=== PATIENT | male | born 1990 | race Caucasian/White ===

== ENCOUNTER 2024-07-02 18:57 | Emergency (ER) | payer MEDICAID, SELFPAY ==
[2024-07-02 19:05] VITALS: BP 115/72; PULSE 103; RESP 16; TEMP 37.4; O2SAT 97
--- NOTE | 2024-07-02 19:32 | XRR_ITS ---
PROCEDURE INFORMATION: Exam: XR Right Hand Exam date and time: 07/02/2024 7:47 PM Age: 33 years old Clinical indication: Injury or trauma; Other: Punched solid object; Blunt trauma (contusions or hematomas); Injury details: C/O pain and swelling to the right hand. 1in lac to the right hand on Friday after he punched a dumpster. PT states that he then noticed some infection looking spots around the site. Prior surgery; Surgery date: 6+ months; Surgery type: Right distal ulna 10 years ago; Additional info: Injury, punched dumpster TECHNIQUE: Imaging protocol: Radiologic exam of the right hand. Views: 3 or more views. COMPARISON: No relevant prior studies available. FINDINGS: Bones/joints: Compression plate with multiple cortical screws spanning the distal right ulna. No evidence of hardware failure or loosening. No acute fracture. Soft tissues: Soft tissue swelling along dorsal aspect of the hand. XR/XR hand RT min 3V* [id number] IMPRESSION: 1. Compression plate with multiple cortical screws spanning the distal right ulna. No evidence of hardware failure or loosening. 2. No acute fracture. 3. Soft tissue swelling along dorsal aspect of the hand.
[2024-07-02 19:34] VITALS: BP 121/74; PULSE 95; RESP 18; O2SAT 96
--- NOTE | 2024-07-02 19:34 | W.ED.WOUNDLC ---
HPI - Wound/Laceration General: Chief Complaint: Wound/Laceration Stated Complaint: right hand lac Time Seen by Provider: 07/02/24 19:25 Source: patient Mode of arrival: ambulatory Limitations: no limitations History of Present Illness: 33yo male presents with family for evaluation of right hand pain and swelling. Patient reports he punched a dumpster 5 days ago which caused a laceration. Patient states he had swelling that he was concerned was related to infection, so he punctured it with a needle a few days ago. States he did get a lot of pus out of the wound. States the swelling did return, so he poked it again with a needle, then removed the scab with his pocket knife. Patient reports he is right-hand dominant. Unsure when last tetanus. He denies fever, chills, body aches, any other concerns at this time. Associated symptoms: Denies chills or fever(s) Related Data Previous Rx's ?Medication ?Instructions ?Recorded cephalexin 500 mg capsule 500 mg PO QID 7 days #28 caps 07/02/24 sulfamethoxazole 800 1 tab PO BID 7 days #14 tabs 07/02/24 mg-trimethoprim 160 mg tablet (Bactrim DS) Allergies Allergy/AdvReac Type Severity Reaction Status Date / Time No Known Allergies Allergy Verified 07/02/24 19:10 Review of Systems Const: Denies: fever(s), chills or body aches Card: Denies: chest pain Resp: Denies: dyspnea Musc: Reports: extremity pain (right hand) and extremity swelling (right hand) [facility] PFSH: Medical History (Updated 07/02/24 @ 20:12 by MONICA Rahman) Major depressive disorder, recurrent severe without psychotic features Intermittent explosive disorder Physical Exam Const: COMMON NORMALS: no acute distress, average body habitus, patient oriented x3, healthy appearing and alert GENERAL APPEARANCE: cooperative ORIENTATION/CONSCIOUSNESS: Yes awake OTHER: Patient is ambulatory to the exam room unassisted. He is sitting upright on the stretcher in no acute distress. He is able to give history with no difficulty. He is interactive with exam appropriately. Family is at bedside HENMT: COMMON NORMALS: normocephalic HEAD & SCALP: normocephalic Chest: CHEST: Yes Symmetrical chest wall rise Resp: COMMON NORMALS: normal respiratory effort EFFORT & INSPECTION: Yes able to speak in complete sentences Extremity: RIGHT UPPER EXTREMITY: Yes hand & digits (Swelling, tenderness, erythema, scabbed wound at 4th MCP) Neuro: COMMON NORMALS: patient oriented x3 SENSORIUM/ORIENTATION: Yes alert Psych: COMMON NORMALS: cooperative Course Reevaluation(s): Reevaluation #1: Notified by nurse that patient wanted to leave prior to x-ray read by radiologist. Discussed with patient that preliminary read is that there are no fractures or foreign bodies, but this is not definitive at this time. Patient does state understanding and still wishes to leave. Will proceed with oral antibiotics, prescription for antibiotics, and return precautions. Patient states understanding Time: 20:00 Vital Signs: Vital signs: Vital Signs Temperature 99.3 F 07/02/24 19:05 Pulse Rate 99 07/02/24 19:47 Respiratory Rate 18 07/02/24 19:47 Blood Pressure 116/72 07/02/24 19:47 Pulse Oximetry 96 07/02/24 19:47 Oxygen Delivery Me thod Room Air 07/02/24 19:47 MDM - Wound/Laceration Medical Decision Making 33yo male presents with family for evaluation of right hand pain and swelling. Patient reports he punched a dumpster 5 days ago which caused a laceration. Patient states he had swelling that he was concerned was related to infection, so he punctured it with a needle a few days ago. States he did get a lot of pus out of the wound. States the swelling did return, so he poked it again with a needle, then removed the scab with his pocket knife. Patient reports he is right-hand dominant. Unsure when last tetanus. He denies fever, chills, body aches, any other concerns at this time. Patient is nontoxic in appearance. Vital signs are stable. No fracture or acute bony abnormality noted on the x-ray, pending radiology review. Patient did wish to leave prior to radiology review of the x-ray. Discussed with patient we do need to begin antibiotics. Cephalexin and Bactrim provided in the emergency department and prescriptions of both are sent to patient's pharmacy. Patient's tetanus was updated. Discussed wound care and continuing to monitor for any worsening symptoms. Recommend he follow-up with primary care on Friday for recheck. Return precautions provided. Patient states understanding and has no further questions or concerns at this time. Differential Diagnosis Likely laceration and abscess XR interpretation done by ED provider, pending radiology final review ED provider radiology interpretation(s): No fracture or acute bony abnormality noted. No foreign body noted. Pending radiology review Discharge Plan Discharge Patient Disposition: Home Clinical Impression: Laceration of right hand with infection Qualifiers: Encounter type: initial encounter Qualified Code(s): S61.411A - Laceration without foreign body of right hand, initial encounter Condition: Stable Prescriptions: New sulfamethoxazole-trimethoprim [Bactrim DS] 800-160 mg tablet 1 tab PO BID 7 Days Qty: 14 0RF cephalexin 500 mg capsule 500 mg PO QID 7 Days Qty: 28 0RF Discharge Orders: Discharge ED (Routine); Ordered 07/02/24 Ordered By: Remberto Cordoba Discharge Diet: Usual diet Discharge Activity: Increase activity as tolerated Patient Instructions: Cellulitis (ED), Pain Management Activity Restrictions/Additional Instructions: Antibiotics have been sent to the pharmacy for the infection of the right hand. Please take these antibiotics to completion Continue to monitor for any worsening symptoms Avoid puncturing the area with any needles or knives as this does introduce more bacteria Follow-up with primary care, call Friday with an update of symptoms and to discuss a recheck Return to the emergency department if any rapid worsening symptoms, onset of fever associated with worsening, difficulty moving the fingers/hand, and as needed Print Language: Spanish Coding Level of Care Code ED Schedule Supervisor for Venkat Almendarez
[2024-07-02] MEDS: tetanus-dipt-pertussis 0.5 mL SDV IM (19:44)
[2024-07-02 19:47] VITALS: BP 116/72; PULSE 99; RESP 18; O2SAT 96
[2024-07-02] MEDS: ketorolac 10 mg Tablet PO (20:02)
[2024-07-02] MEDS: sulfamethoxazole-trimeth DS 160-800 mg Tablet 1 TAB PO (20:15)
[2024-07-02] MEDS: cephALEXin 500 mg Capsule PO (20:15)
[2024-07-02 20:19] VITALS: BP 116/72; PULSE 91; RESP 18; O2SAT 99
== END 2024-07-02 20:20 | disposition home or self-care (01) ==
PROVIDERS: Emergency Provider Nurse Practitioner
DX: S61.411A Laceration without foreign body of right hand, initial encounter (principal); W22.8XXA Striking against or struck by other objects, initial encounter
CPT/HCPCS: 73130; 90471; 90715; 99283; J9999

== ENCOUNTER 2024-09-13 18:33 | Emergency (ER) | payer MEDICAID, SELFPAY ==
[2024-09-13 18:46] VITALS: BP 115/59; PULSE 84; RESP 18; TEMP 36.7; O2SAT 99; BMI 20.7
--- NOTE | 2024-09-13 19:00 | W.ED.WOUNDLC ---
HPI - Wound/Laceration General: Chief Complaint: Wound/Laceration Stated Complaint: R leg lac Time Seen by Provider: 09/13/24 18:36 Source: patient Mode of arrival: ambulatory Limitations: no limitations History of Present Illness: Patient is a 34-year-old male who presents to ED today for evaluation of a laceration to his anterior right lower leg that he sustained just prior to arrival after accidentally cutting it with a chainsaw. Tetanus is up-to-date. Bleeding is controlled. He is not complaining of numbness, tingling, loss of sensation. He is ambulatory here without difficulty or assistance. Onset (ago): hour(s) Extremity Location: Right: lower leg Place: home Patient tetanus UTD: Yes Context: accidental Associated symptoms: Reports no associated symptoms Treatments prior to arrival: bandage Related Data Previous Rx's ?Medication ?Instructions ?Recorded cephalexin 500 mg capsule 500 mg PO Q6H 7 days #28 caps 09/13/24 Allergies Allergy/AdvReac Type Severity Reaction Status Date / Time No Known Allergies Allergy Verified 07/02/24 19:10 Review of Systems Musc: Reports: extremity pain; Denies: extremity swelling, joint pain, joint swelling, joint redness or joint warmth Skin/Breast: Reports: other (R LE laceration) Neuro: Denies: numbness in extremities, sensory changes or difficulty walking [facility] ED PFSH: Medical History Major depressive disorder, recurrent severe without psychotic features Intermittent explosive disorder Physical Exam Const: COMMON NORMALS: no acute distress, average body habitus, patient oriented x3, no limitations, healthy appearing, alert and well nourished Extremity: GENERAL: Yes normal exam except as noted EXTREMITY IMAGE (FRONT):  1. 2cm anterior tibial laceration; no bleeding Neuro: COMMON NORMALS: patient oriented x3, moves all extremities, no focal motor deficits and no sensory deficits noted SENSORIUM/ORIENTATION: Yes alert GAIT: Yes Normal gait present MOTOR EXAM: 5/5 motor strength present throughout Skin: TRAUMA: laceration Procedures Laceration Laceration 1: Site: lower extremity Side (If applicable): right Size (cm): 2.0 Description: irregular Depth: simple, single layer Local Anesthetic: lidocaine 1% and with epi Amount of anesthesia used (mL): 2.0 Pre-repair: wound explored and irrigated extensively Skin layer closed with: other (dominique) Number of sutures: 4 Course Vital Signs: Vital signs: Vital Signs Temperature 98.1 F 09/13/24 18:46 Pulse Rate 78 09/13/24 19:48 Respiratory Rate 16 09/13/24 19:48 Blood Pressure 104/63 09/13/24 19:48 Pulse Oximetry 99 09/13/24 19:48 Oxygen Delivery Me thod Room Air 09/13/24 19:48 MDM - Wound/Laceration Medical Decision Making Wound was copiously irrigated and repaired as documented. Patient adamantly refused sutures but was agreeable to dominique. Tetanus is up-to-date. XR of his right tib/fib showed small bony avulsions at site of injury. Patient was given 1g IM Ancef prior to discharge. Will place on antibiotics. Will have him follow-up with orthopedics. Differential Diagnosis Likely laceration Medical Records I reviewed the patient's medical records. XR interpretation done by ED provider, pending radiology final review Discharge Plan Discharge Patient Disposition: Home Clinical Impression: Laceration of leg, right Qualifiers: Encounter type: initial encounter Qualified Code(s): S81.811A - Laceration without foreign body, right lower leg, initial encounter Fracture of shaft of right tibia Qualifiers: Encounter type: initial encounter Fracture type: closed Fracture morphology: unspecified fracture morphology Qualified Code(s): S82.201A - Unspecified fracture of shaft of right tibia, initial encounter for closed fracture Condition: Stable Prescriptions: New cephalexin 500 mg capsule 500 mg PO Q6H 7 Days Qty: 28 0RF Discharge Orders: Discharge ED (Routine); Ordered 09/13/24 Ordered By: Judie Carter Patient Instructions: Laceration (DC), Patient Portal & Nathan Instructions Activity Restrictions/Additional Instructions: Keep wound/laceration clean with warm soap and water twice daily. Monitor for signs of infection such as redness, swelling, increased pain, or drainage. Please seek medical re-evaluation if these occur. If you received sutures/dominique today these will need to be removed (unless you were told by the provider that they are absorbable). The provider should have discussed with you the length of time until removal-7 DAYS. As we discussed, your x-ray did show a small miriam of bone. We will cover you with antibiotics and have you follow-up with orthopedics. Print Language: Lebanese Coding Level of Care Code ED Head Resident for Venkat Almendarez
--- NOTE | 2024-09-13 19:40 | XRR_ITS ---
PROCEDURE INFORMATION: Exam: XR Right Tibia and Fibula Exam date and time: 09/13/2024 7:40 PM Age: 34 years old Clinical indication: Injury or trauma; Other: Chain saw; Laceration; Lower leg; Right; Foreign body involvement not specified TECHNIQUE: Imaging protocol: Radiologic exam of the right tibia and fibula. Views: 2 views. COMPARISON: No relevant prior studies available. FINDINGS: Bones/joints: No acute fracture or dislocation. No joint effusions. Soft tissues: Unremarkable. XR/XR tibia fibula RT 2V [id number] IMPRESSION: No acute findings.
[2024-09-13 19:48] VITALS: BP 104/63; PULSE 78; RESP 16; O2SAT 99
[2024-09-13] MEDS: ceFAZolin 1,000 MG in water for injection-sterile 2.5 ML 1 MG IM (20:17)
[2024-09-13 20:47] VITALS: BP 120/76; PULSE 78; RESP 16; O2SAT 99
--- NOTE | 2024-09-14 17:49 | DCPLANNER ---
Message sent to Ortho for Follow up-Wound was copiously irrigated and repaired as documented. Patient adamantly refused sutures but was agreeable to dominique. Tetanus is up-to-date. XR of his right tib/fib showed small bony avulsions at site of injury. Patient was given 1g IM Ancef prior to discharge. Will place on antibiotics. Will have him follow-up with orthopedics.
== END 2024-09-13 20:48 | disposition home or self-care (01) ==
PROVIDERS: Emergency Provider Physician Assistant
DX: S81.811A Laceration without foreign body, right lower leg, initial encounter (principal); W29.3XXA Contact with powered garden and outdoor hand tools and machinery, initial encounter
CPT/HCPCS: 12001; 73590; 96372; 99284; J0690

== ENCOUNTER 2024-09-24 12:14 | Emergency (ER) | payer MEDICAID, SELFPAY ==
[2024-09-24 12:59] VITALS: BP 109/65; PULSE 102; RESP 18; TEMP 36.7; O2SAT 98; BMI 20.7
--- NOTE | 2024-09-24 13:25 | W.ED.RECABL ---
HPI - Recheck/Abnormal Lab/Rx General: Chief Complaint: Recheck/Abnormal Lab/Rx Stated Complaint: Rajendra need took out Time Seen by Provider: 09/24/24 12:52 History of Present Illness: Patient arrives for wound check and staple removal Related Data Allergies Allergy/AdvReac Type Severity Reaction Status Date / Time No Known Allergies Allergy Verified 07/02/24 19:10 Review of Systems Musc: Reports: extremity pain; Denies: extremity swelling, joint pain, joint swelling, joint redness or joint warmth Skin/Breast: Reports: other (R LE laceration) Neuro: Denies: numbness in extremities, sensory changes or difficulty walking PENDING SALE TO [facility] ED PFS: Medical History (Updated 09/24/24 @ 13:27 by JULISSA Frey) Major depressive disorder, recurrent severe without psychotic features Intermittent explosive disorder Physical Exam Const: COMMON NORMALS: no acute distress, average body habitus, patient oriented x3, no limitations, healthy appearing, alert and well nourished Extremity: GENERAL: Yes normal exam except as noted Neuro: COMMON NORMALS: patient oriented x3, moves all extremities, no focal motor deficits and no sensory deficits noted SENSORIUM/ORIENTATION: Yes alert GAIT: Yes Normal gait present MOTOR EXAM: 5/5 motor strength present throughout Skin: TRAUMA: laceration (Repair. Proximal tibia right lower extremity) Course Vital Signs: Vital signs: Vital Signs Temperature 98.0 F 09/24/24 12:59 Pulse Rate 102 H 09/24/24 12:59 Respiratory Rate 18 09/24/24 12:59 Blood Pressure 109/65 09/24/24 12:59 Pulse Oximetry 98 09/24/24 12:59 Oxygen Delivery Me thod Room Air 09/24/24 12:59 MDM - Recheck/Abnormal Lab/Rx Medical Decision Making Patient presents to the ER for suture removal Area has a scab with retained sutures. No erythema warmth or drainage. No radiology studies performed this visit Discharge Plan Discharge Patient Disposition: Home Clinical Impression: Encounter for removal of rajendra Condition: Stable Discharge Orders: Discharge ED (Routine); Ordered 09/24/24 Ordered By: John Copeland Discharge Diet: Advance as tolerated Discharge Activity: Resume usual activity Patient Instructions: Pain Management, Patient Portal & Nathan Instructions Activity Restrictions/Additional Instructions: Please monitor for signs of infection. This would include redness warmth or drainage Print Language: Namibian Coding Level of Care Code ED Religious Healer for Venkat Almendarez
== END 2024-09-24 13:30 | disposition home or self-care (01) ==
PROVIDERS: Emergency Provider Nurse Practitioner
DX: Z48.02 Encounter for removal of sutures (principal)
CPT/HCPCS: 99281